=== PATIENT | male | born 2000 | race Caucasian/White ===

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

== ENCOUNTER → 2018-12-05 | Outpatient (CLI) | payer BC ==
[2018-12-05 11:24] LABS: Basophils # (A) 0.1 k/uL (0-0.2); Basophils % (A) 1 %; Eosinophils # (A) 0.3 k/uL (0-0.7); Eosinophils % (A) 6 %; HCT 47.7 % (39.0-53.0); HGB 15.4 gm/dL (13.0-17.5); Lymphocytes # (A) 1.5 k/uL (1.0-4.8); Lymphocytes % (A) 29 %; MCH 30.1 pg (25.0-35.0); MCHC 32.2 g/dL (31.0-37.0); MCV 93.5 fL (80.0-100.0); Mean Platelet Volume 7.5; Monocytes # (A) 0.3 k/uL (0-1.0); Monocytes % (A) 7 %; Neutrophils # (A) 2.9 k/uL (1.3-7.7); Neutrophils % (A) 55 %; Platelet Count 191 k/uL (150-450); RDW 12.7 % (11.5-15.5); WBC 5.2 k/uL (4.0-11.0)
[2018-12-05 16:03] LABS: Albumin/Globulin Ratio 2.5 (1.60-3.17); Bilirubin, Conjugated 0.3 mg/dL (0.20-0.40); Total Bilirubin 1.3 mg/dL (0.2-1.2)
== END | disposition home or self-care (01) ==
LOC: LABWHC1 10:20
PROVIDERS: ATTEND Pediatrics
DX: R17 Unspecified jaundice (principal)
CPT/HCPCS: 36415; 80076; 85025